=== PATIENT | female | born 1985 | race Caucasian/White ===

== ENCOUNTER 2017-10-07 07:51 | Inpatient (IN) | payer BC ==
[2017-10-07] MEDS ORDERED: CITRIC ACID-SODIUM CITRATE 15 ML CUP PO ONE (08:01)
[2017-10-07] MEDS ORDERED: LACTATED RINGERS 1,000 ML IV ONE (08:01)
[2017-10-07] MEDS ORDERED: CLINDAMYCIN 600 MG in DEXTROSE 5% IN WATER 50 ML IVPB STA ×2 (08:02)
[2017-10-07] MEDS ORDERED: ONDANSETRON 4 MG/2 ML VIAL ONE (08:21)
[2017-10-07] MEDS ORDERED: DEXAMETHASONE SOD PHOS (MDV) 100 MG/10 ML VIAL ONE (08:21)
[2017-10-07] MEDS ORDERED: KETOROLAC 30 MG/ML 1 ML VIAL ONE (08:21)
[2017-10-07] MEDS ORDERED: NALBUPHINE 10 MG/ML AMPUL ONE (08:21)
[2017-10-07] MEDS ORDERED: MORPHINE SULFATE (PF) 0.3 MG/0.3 ML SYR ONE (08:21)
[2017-10-07] MEDS ORDERED: OXYTOCIN 10 UNIT/ML 1 ML VIAL ONE (08:21)
[2017-10-07] MEDS ORDERED: HYDROmorphone (PF) 1 MG/ML ONE (08:21)
[2017-10-07] MEDS ORDERED: ACETAMINOPHEN IV (For NPO) 1,000 MG/100 ML VIAL ONE (08:21)
[2017-10-07] MEDS ORDERED: LACTATED RINGERS 1,000 ML BAG IV ONE (08:21)
--- NOTE | 2017-10-07 08:23 | P.HPOB ---
History of Present Illness H&P Date: 10/07/17 Chief Complaint: Vaginal bleeding This is a 32-year-old 2 para 0101 woman who presents by ambulance with heavy vaginal bleeding. She is 34 weeks gestation. She reports waking up this morning and going to the bathroom at which time she noticed a large amount of blood and clots. She is continued to have a moderate flow of vaginal bleeding since that time. She denies abdominal pain. The has been complicated by the intrauterine growth restriction with a 30 week ultrasound showing estimated weight less than 4th percentile. Placenta has on an accessory lobe and she has a single umbilical artery. She has been seen in consultation by the maternal medicine specialist at [facility]. She's been followed with screening and had an NST yesterday which was according to the patient reassuring. Her obstetric history is significant for a 32 week vaginal delivery after abruption in 2009. Upon initial presentation to labor and delivery triage patient is noted to have a moderate amount of active dark red vaginal bleeding. heart tones are reassuring by external monitoring. On cervical exam she is 2-3 cm dilated , 80% effaced with bulging membranes. Bedside ultrasound confirms vertex presentation with no evidence of reviewed. This was performed prior to the vaginal exam. Based on active vaginal bleeding, IUGR status, remote from delivery, I have recommended proceeding to primary low transverse section. The pediatric and anesthesiology team's have been notified. Labs are pending. Review of Systems All systems: negative Past Medical History Past Medical History: No Reported History History of Any Multi-Drug Resistant Organisms: None Reported Past Surgical History: No Surgical Hx Reported Past Psychological History: Anxiety Smoking Status: Current every day smoker Past Alcohol Use History: None Reported Past Drug Use History: None Reported Medications and Allergies Home Medications Medication Instructions Recorded Confirmed Type Escitalopram [Lexapro] 10 mg PO HS 06/15/17 10/07/17 History Allergies Allergy/AdvReac Type Severity Reaction Status Date / Time amoxicillin [From Augmentin] Allergy Rash/Hives Verified 10/07/17 08:06 clavulanic acid Allergy Rash/Hives Verified 10/07/17 08:06 [From Augmentin] Penicillins Allergy Unknown Verified 10/07/17 08:06 Childhood azithromycin AdvReac Nausea & Verified 10/07/17 08:06 Vomiting Exam - Vital Signs Vital signs: Intake and Output 10/06/17 10/07/17 10/07/17 22:59 06:59 14:59 Other: Weight 70.307 kg Assessment and Plan (1) 34 weeks gestation of Current Visit: Yes Status: Acute Code(s): Z3A.34 - 34 WEEKS GESTATION OF SNOMED Code(s): 58434494 (2) Vaginal bleeding during , antepartum Current Visit: Yes Status: Acute Code(s): O46.90 - ANTEPARTUM HEMORRHAGE, UNSPECIFIED, UNSPECIFIED TRIMESTER SNOMED Code(s): 23912931
[2017-10-07 08:27] LABS: Basophils % (A) 0 %; Eosinophils # (A) 0.1 k/uL (0-0.7); Eosinophils % (A) 1 %; HCT 33.5 % (34.0-46.0); HGB 11.2 gm/dL (11.4-16.0); Lymphocytes # (A) 2.3 k/uL (1.0-4.8); Lymphocytes % (A) 19 %; MCHC 33.3 g/dL (31.0-37.0); MCV 90.1 fL (80.0-100.0); Mean Platelet Volume 7.4; Monocytes # (A) 0.6 k/uL (0-1.0); Monocytes % (A) 5 %; Neutrophils # (A) 8.6 k/uL (1.3-7.7); Neutrophils % (A) 73 %; Platelet Count 310 k/uL (150-450); RBC 3.72 m/uL (3.80-5.40); RDW 13.6 % (11.5-15.5); WBC 11.8 k/uL (3.8-10.6)
[2017-10-07] MEDS ORDERED: MORPHINE SULFATE 2 MG/ML SYRINGE IVP PRN (09:02)
[2017-10-07] MEDS ORDERED: ONDANSETRON 4 MG/2 ML VIAL IVP PRN ×2 (09:02→09:35)
[2017-10-07] MEDS ORDERED: NALOXONE 0.4 MG/ML 1 ML VIAL IV PRN ×2 (09:02→09:35)
[2017-10-07] MEDS ORDERED: diphenhydrAMINE 50 MG/ML 1 ML VIAL IVP PRN ×3 (09:02→09:35)
--- NOTE | 2017-10-07 09:34 | P.OP ---
Date of Procedure: 10/07/17 Preoperative Diagnosis: Vaginal bleeding, suspect placental abruption Intrauterine at 34-2/7 weeks' gestation IUGR Single umbilical artery Placenta with accessory lobe Maternal Rh- Maternal tobacco use Postoperative Diagnosis: Same Procedure(s) Performed: Primary low transverse section Anesthesia: spinal Surgeon: Danisha Johnson [employer] Driver #1: Karena Chung Estimated Blood Loss (ml): 500 IV fluids (ml): 1,000 Urine output (ml): 500 Pathology: other (Placenta) Condition: stable Disposition: PACU Indications for Procedure: This is a 32-year-old 2 para 0101 woman at 34-2/7 weeks' gestation who presented with sudden onset heavy vaginal bleeding. She arrived by EMS at which time reassuring heart tones were obtained. She had a moderate flow of dark red vaginal blood. She was remote from delivery at 2 cm dilated. Decision was made to proceed to urgent primary low transverse section for concern for acute placental abruption. Operative Findings: Female in the vertex presentation with a nuchal cord 1. Apgars of 8 at 1 minute and 9 at 5 minutes weighing 2025 g. Anterior placenta that appeared by lobed with large portion of membranes in between the 2 lobes. Amniotic fluid appeared clear. Description of Procedure: The patient was taken to the operating room from triage where spinal anesthetic was administered without incident. She was positioned, prepped and draped in the dorsal supine position. Najera catheter was in place. Anesthetic was confirmed adequate and a low transverse skin incision was made and carried down to the underlying fascia sharply. The fascia was incised in the midline and extended bilaterally with the Chavez scissors. The inferior and superior aspect of the fascial incision were grasped elevated and the underlying rectus muscles dissected off sharply. The rectus muscles were bluntly in the midline and the peritoneum was entered. The peritoneal incision was extended bilaterally bluntly. Bladder blade was placed. Vesicouterine peritoneum was identified, tented up and entered sharply. Bladder flap was created and the bladder blade was replaced. A low transverse uterine incision was made. The low uterine segment was thick. This was carried down to the underlying placenta which was anterior. The placenta was on entered bluntly to allow for access to the amniotic fluids which were ruptured. The fluid appeared clear. The uterine incision was in a then extended bilaterally bluntly. The 's vertex was delivered from the incision and nuchal cord 1 was reduced. The nose and mouth were bulb suctioned. The rest the was delivered onto the field and the nose and mouth were further bulb suctioned. The infant was vigorous on the field with good tone, color and immediate cry. The cord was clamped and cut and the was taken to the warmer. The electronic systems security assessment was in attendance to rapidly remove the from the room and took it to the nursery for further assessment. The placenta was manually removed. It did appear to have bilateral lobes with a large portion of membranes the 2. The uterus was then exteriorized and cleared further of clot and debris. The uterine incision was delineated with Chawla clamps and closed in a running locked fashion with 0 Vicryl suture followed by a second imbricating layer of the same. Additional [id number] sutures were placed along the incision for hemostasis which was then achieved. The uterus was returned to the abdomen and the gutters were cleared of all clot and debris. Surgicel was placed over the incision for further hemostasis. The peritoneal edges, rectus muscles and fascial edges were inspected and noted to be hemostatic. The fascia was then closed in a running fashion with 0 Vicryl suture. Subcuticular tissue was copiously suction irrigated and reapproximated with 3-0 chromic. The skin was then closed in a subcutaneous fashion with 4-0 Vicryl suture. All counts reported to me as correct by the operating room staff. The patient received antibiotics preoperatively and Pitocin Pitocin following delivery of the placenta. She was transported to the recovery area in stable condition.
[2017-10-07] MEDS ORDERED: Acetaminophen-Codeine 300-30mg TAB PO PRN ×2 (09:35)
[2017-10-07] MEDS ORDERED: KETOROLAC 30 MG/ML 1 ML VIAL IVP PRN (09:35)
[2017-10-07] MEDS ORDERED: ZOLPIDEM 5 MG TAB PO PRN (09:35)
[2017-10-07] MEDS ORDERED: ACETAMINOPHEN TAB 325 MG TAB PO PRN (09:35)
[2017-10-07] MEDS ORDERED: diphenhydrAMINE 25 MG CAP PO PRN (09:35)
[2017-10-07] MEDS ORDERED: METOCLOPRAMIDE 5 MG/ML 2 ML VIAL IVP PRN (09:35)
[2017-10-07] MEDS ORDERED: diphenhydrAMINE 50 MG CAP PO PRN (09:35)
[2017-10-07] MEDS ORDERED: OXYTOCIN 20 UNITS/1000 ML NS 1,000 ML IV SCH (09:45)
[2017-10-07] MEDS: LACTATED RINGERS 1,000 ML IV SCH ×4 (09:55→20:46)
[2017-10-07 10:23] VITALS: BMI 25.7
[2017-10-07] MEDS ORDERED: MORPHINE SULFATE 4 MG/0.8 ML SYRINGE (INJ) IVP PRN (13:10)
[2017-10-07] MEDS ORDERED: NICOTINE 21MG/24HR PATCH TRANSDERM SCH (18:00)
[2017-10-07] MEDS ORDERED: SENNOSIDES-DOCUSATE SODIUM 1 EACH TAB PO SCH (20:00)
[2017-10-07] MEDS ORDERED: ESCITALOPRAM 10 MG TAB PO SCH (21:00)
[2017-10-08] MEDS: IBUPROFEN 600 MG TAB PO PRN ×2 (04:17→12:36)
--- NOTE | 2017-10-08 07:45 | P.PNOBGPC ---
Subjective - Subjective Principal diagnosis: Postop day 1 status post primary low transverse section Interval history: This is a 32-year-old 2 para 0101 at 34-2/7 weeks presented to labor and delivery with complaints of sudden onset of heavy vaginal bleeding. She arrived via EMS at which time reassuring heart tones were noted. On exam there was a moderate amount of dark red vaginal bleeding. She was remote from delivery at 2 cm therefore the decision was made to take her for primary low transverse section. was performed without difficulty. Patient's postoperative course has been uneventful. On this postop day #1 she is ambulatory and voiding without difficulty. She is tolerating a regular diet without nausea or vomiting. She is using po Motrin for pain. She does wish to be discharged home at some point today secondary to her being transferred for gestational age. Patient reports: Reports appetite normal, Reports voiding normally, Reports pain well controlled, Reports ambulating normally : in NICU Objective - Vital Signs Latest vital signs: Vital Signs Temp Pulse Resp BP Pulse Ox 10/08/17 05:45 18 10/08/17 04:26 98.2 F 76 18 102/65 100 10/08/17 03:59 18 10/08/17 01:44 17 10/08/17 00:00 97.8 F 66 18 105/64 98 10/07/17 21:40 17 10/07/17 20:15 97.8 F 64 18 125/62 100 10/07/17 20:00 18 10/07/17 17:40 64 18 98 10/07/17 14:56 98.1 F 61 18 121/76 98 10/07/17 14:55 98.1 F 61 18 121/76 98 10/07/17 14:03 98 10/07/17 13:03 61 97 10/07/17 11:53 96.0 F L 70 18 104/55 98 10/07/17 11:30 96.0 F L 70 18 104/55 98 10/07/17 11:00 53 L 18 99/60 100 10/07/17 10:27 54 L 98/63 10/07/17 10:15 58 L 18 104/57 99 10/07/17 10:00 97.7 F 54 L 18 104/55 98 10/07/17 09:58 97.7 F 54 L 18 104/55 98 10/07/17 09:45 96.8 F L 61 18 104/55 97 10/07/17 09:30 97.8 F 97 18 110/56 97 10/07/17 08:05 97.8 F 83 18 122/77 Intake and Output 10/07/17 10/08/17 10/08/17 22:59 06:59 14:59 Output Total 1250 Balance -1250 Output: Urine 1250 Uretheral (Najera) 450 Other: # Voids 1 - Exam Extremities: Present: normal Abdomen: Present: soft Incision: Present: normal, dry, intact Uterus: Present: firm - Labs Labs: Abnormal Lab Results - Last 24 Hours (Table) 10/07/17 Range/Units 08:12 WBC 11.8 H (3.8-10.6) k/uL RBC 3.72 L (3.80-5.40) m/uL Hgb 11.2 L (11.4-16.0) gm/dL Hct 33.5 L (34.0-46.0) % Neutrophils # 8.6 H (1.3-7.7) k/uL Assessment and Plan (1) S/P section Narrative/Plan: Routine postoperative care today, we will reevaluate her on lunchtime for possible discharge so she can go and be with her . Discharge instructions were reviewed with her in the event she is doing well and wishes to be discharged home. She will follow-up with Dr. Solomon in 2 weeks for an incision check. Patient states understanding of the plan and is very motivated to be discharged home today Current Visit: Yes Status: Acute Code(s): Z98.891 - HISTORY OF UTERINE SCAR FROM PREVIOUS SURGERY SNOMED Code(s): 967955817 (2) 34 weeks gestation of Current Visit: Yes Status: Acute Code(s): Z3A.34 - 34 WEEKS GESTATION OF SNOMED Code(s): 77144135 (3) Vaginal bleeding during , antepartum Current Visit: Yes Status: Acute Code(s): O46.90 - ANTEPARTUM HEMORRHAGE, UNSPECIFIED, UNSPECIFIED TRIMESTER SNOMED Code(s): 87246468
[2017-10-08 08:20] LABS: Basophils % (A) 0 %; Eosinophils # (A) 0.2 k/uL (0-0.7); Eosinophils % (A) 1 %; HGB 10.6 gm/dL (11.4-16.0); Lymphocytes # (A) 3.7 k/uL (1.0-4.8); Lymphocytes % (A) 22 %; MCH 29.8 pg (25.0-35.0); MCHC 33.1 g/dL (31.0-37.0); MCV 89.9 fL (80.0-100.0); Mean Platelet Volume 7.5; Monocytes # (A) 0.9 k/uL (0-1.0); Monocytes % (A) 5 %; Neutrophils # (A) 11.7 k/uL (1.3-7.7); Neutrophils % (A) 70 %; Platelet Count 283 k/uL (150-450); RBC 3.57 m/uL (3.80-5.40); RDW 13.4 % (11.5-15.5); WBC 16.7 k/uL (3.8-10.6)
[2017-10-08 08:41] VITALS: RESP 16
--- NOTE | 2017-10-08 12:00 | P.PN ---
Progress Note - Text Progress Note Date: 10/08/17 Postoperative day 1 status post section under spinal anesthesia, and intrathecal morphine given for postoperative analgesia, patient doing well, there is no paresthesia related complications, patient complains of mild pruritus and given a dose of Benadryl. further management as per her primary team
[2017-10-08 14:19] VITALS: BP 124/81; PULSE 70; TEMP 98.1
== END 2017-10-08 14:30 | disposition home or self-care (01) | DRG 765 ==
LOC: FBPOP 07:51 → 4FBP 07:59
PROVIDERS: ADMIT Obstetrics & Gynecology; ATTEND Obstetrics & Gynecology
PROC: 10D00Z1 Extraction of Products of Conception, Low, Open Approach (ICD-10-PCS; principal; 2017-10-07 08:27)
DX: O67.8 Other intrapartum hemorrhage (principal); O60.14X0 Preterm labor third trimester with preterm delivery third trimester, not applicable or unspecified; O36.5930 Maternal care for other known or suspected poor fetal growth, third trimester, not applicable or unspecified; F17.210 Nicotine dependence, cigarettes, uncomplicated; O69.81X0 Labor and delivery complicated by cord around neck, without compression, not applicable or unspecified; O99.334 Smoking (tobacco) complicating childbirth; Z3A.34 34 weeks gestation of pregnancy; Z37.0 Single live birth; O99.344 Other mental disorders complicating childbirth; F41.9 Anxiety disorder, unspecified; Z79.899 Other long term (current) drug therapy; Z88.1 Allergy status to other antibiotic agents; Z88.0 Allergy status to penicillin; Q27.0 Congenital absence and hypoplasia of umbilical artery
CPT/HCPCS: 85025; 85610; 86850; 86870; 86880; 86900; 86901; 88307

== ENCOUNTER 2021-08-07 13:36 | Emergency (ER) | payer BC, OTHER ==
[2021-08-07 13:40] VITALS: TEMP 97.8
--- NOTE | 2021-08-07 14:26 | ED ---
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 She states that it is blood and saliva that she was exposed to. Patient denies any other injury. She states that she is wearing contacts and has not irrigated her eyes. She has no medical history. She states that she does not want any blood drawn from herself but would like the patient tested. She states that she has been vaccinated against hepatitis B. -: hour(s) (1) Location: eyes Severity scale (1-10): 0 Associated Symptoms: denies other symptoms Treatments Prior to Arrival: none - Related Data Home Medications Medication Instructions Recorded Confirmed Escitalopram [Lexapro] 10 mg PO HS 06/15/17 10/07/17 Pnv,Calcium 72/Iron/Folic Acid 1 tab PO DAILY 10/07/17 10/07/17 [ Plus Tablet] Allergies Allergy/AdvReac Type Severity Reaction Status Date / Time acetaminophen [From [place]] Allergy Unknown Verified 08/07/21 13:38 amoxicillin [From Augmentin] Allergy Rash/Hives Verified 08/07/21 13:38 clavulanic acid Allergy Rash/Hives Verified 08/07/21 13:38 [From Augmentin] hydrocodone [From [place]] Allergy Unknown Verified 08/07/21 13:38 Penicillins Allergy Unknown Verified 08/07/21 13:38 Childhood azithromycin AdvReac Nausea & Verified 08/07/21 13:38 Vomiting Review of Systems ROS Statement: Those systems with pertinent positive or pertinent negative responses have been documented in the HPI. ROS Other: All systems not noted in ROS Statement are negative. Past Medical History Past Medical History: No Reported History History of Any Multi-Drug Resistant Organisms: None Reported Past Surgical History: No Surgical Hx Reported Past Anesthesia/Blood Transfusion Reactions: No Reported Reaction Past Psychological History: Anxiety Smoking Status: Never smoker Past Alcohol Use History: None Reported Past Drug Use History: None Reported - Past Family History Mother History Unknown: Yes General Exam Limitations: no limitations General appearance: alert, in no apparent distress Head exam: Present: atraumatic, normocephalic, normal inspection Eye exam: Present: normal appearance. Absent: scleral icterus, conjunctival injection, periorbital swelling, periorbital tenderness Respiratory exam: Present: normal lung sounds bilaterally. Absent: respiratory distress, wheezes, rales, rhonchi, stridor, chest wall tenderness, accessory muscle use, decreased breath sounds Cardiovascular Exam: Present: regular rate Neurological exam: Present: alert, oriented X3, normal gait Psychiatric exam: Present: normal affect, normal mood Skin exam: Present: warm, dry, normal color. 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 There was blood in his saliva. Patient was offered HIV testing and blood work and refused. Labs were drawn from the patient she was exposed to. She states that she will follow up with employee health. She has no other injuries. Eyes were irrigated in the emergency room. Her contacts were in at the time of exposure and removed prior to irrigation. Patient instructed to return to emergency room if any new or concerning symptoms. Case discussed with with Dr. Alston Disposition Clinical Impression: Exposure to blood or body fluid Disposition: HOME SELF-CARE Condition: Good Additional Instructions: Follow-up with employee health. Return to the emergency room with any new or concerning symptoms. Is patient prescribed a controlled substance at d/c from ED?: No Referrals: Tobi Julio MD [Primary Care Provider] - 1-2 days Time of Disposition: 14:39
[2021-08-07 14:48] VITALS: BP 124/61; PULSE 87; RESP 18
== END 2021-08-07 14:48 | disposition home or self-care (01) ==
LOC: EC 13:36
DX: Z77.21 Contact with and (suspected) exposure to potentially hazardous body fluids (principal); Z88.6 Allergy status to analgesic agent; Z88.1 Allergy status to other antibiotic agents; Z88.0 Allergy status to penicillin; Z88.5 Allergy status to narcotic agent
CPT/HCPCS: 99283